=== PATIENT | male | born 1995 | race Caucasian/White ===

== ENCOUNTER 2020-11-18 10:59 | Emergency (ER) | payer MEDICAID ==
[~2020-11-18] VITALS: Ht 167.6 cm; Wt 79.4 kg
[2020-11-18 11:13] VITALS: BP_SYST 128
--- NOTE | 2020-11-18 11:25 | NUR ---
Placed in room 4 . Placed on quality assurance monitor final, blood pressure machine and pulse oximeter. To gown for exam. Side rails up.
[2020-11-18] MEDS ORDERED: ONDANSETRON HCL 4 MG/2 ML VIAL IVP ONE ×2 (11:30→12:45)
[2020-11-18] MEDS ORDERED: KETOROLAC TROMETHAMINE 30 MG VIAL IVP ONE (11:30)
[2020-11-18] MEDS ORDERED: NACL 0.9% 1,000 ML IV ONE (11:30)
--- NOTE | 2020-11-18 11:30 | NUR ---
Pt walked in to ER with c/o abdominal pain 10/10, nausea no vomiting x2 days. Reports h/o kidney stones. V/S stable, no distress noted.
--- NOTE | 2020-11-18 11:35 | NUR ---
ER Dr. Erickson at bedside examining patient.
--- NOTE | 2020-11-18 11:40 | NUR ---
# 20 gauge angiocath placed to LFA. Use of asceptic technique. Opsite placed over site. Blood return noted. Blood for lab drawn from site. Flushed with 10 cc of normal saline. No evidence of infiltration noted. Patient tolerated well.
--- NOTE | 2020-11-18 11:45 | NUR ---
Patient transported to radiology via wheelchair, accompanied by staff.
--- NOTE | 2020-11-18 11:59 | NUR ---
Returned from radiology, back to [facility].
[2020-11-18 12:02] LABS: BASOPHILS # (AUTO) 0.1 K/uL (0.0-0.2); BASOPHILS % (AUTO) 1.8 % (0.0-2.0); EOSINOPHILS # (AUTO) 0.1 K/uL (0.0-0.4); EOSINOPHILS % (AUTO) 1.6 % (0.0-4.0); HEMATOCRIT 45.2 % (36-54); HEMOGLOBIN 15.4 g/dL (14.0-18.0); LYMPHOCYTES # (AUTO) 3.5 K/uL (1.0-5.5); LYMPHOCYTES % (AUTO) 47.8 % (20.5-51.5); MEAN CORPUSCULAR HEMOGLOBIN 31 pg (27-31); MEAN CORPUSCULAR HGB CONC 34 % (32-36); MEAN CORPUSCULAR VOLUME 90 fL (79.0-98.0); MONOCYTES # (AUTO) 0.3 K/uL (0.0-1.0); MONOCYTES % (AUTO) 4.2 % (1.7-9.3); NEUTROPHILS # (AUTO) 3.2 K/uL (1.8-7.7); NEUTROPHILS % (AUTO) 44.6 % (40.0-70.0); PLATELET COUNT (AUTO) 335 K/uL (130-430); RED BLOOD CELL COUNT(AUTO) 5.02 MIL/uL (4.2-6.2); RED CELL DISTRIBUTION WIDTH 12.4 % (9.0-15.0); WHITE BLOOD COUNT (AUTO) 7.2 K/uL (4.8-10.8)
--- NOTE | 2020-11-18 12:05 | NUR ---
PT GIVEN URINAL AND ENCOURAGED TO VOID
[2020-11-18 12:21] LABS: CALCIUM 9.3 mg/dL (8.4-11.0); CREATININE 0.93 mg/dL (0.55-1.30)
[2020-11-18 12:26] LABS: ALBUMIN 4.2 g/dL (3.4-4.8); TOTAL BILIRUBIN 0.5 mg/dL (0.0-1.0)
[2020-11-18] MEDS ORDERED: traMADol HCL HCL 50 MG TABLET (ULTRAM) PO ONE (12:30)
[2020-11-18 12:32] LABS: BILIRUBIN,URINE 1+ (NEGATIVE); BLOOD, URINE 3+ (NEGATIVE); CLARITY/URINE CLEAR (CLEAR); COLOR,URINE YELLOW (YELLOW); GLUCOSE,URINE NEGATIVE (NEGATIVE); KETONES,URINE TRACE (NEGATIVE); LEUKOCYTE ESTERASE ,URINE NEGATIVE (NEGATIVE); NITRITE, URINE NEGATIVE (NEGATIVE); PROTEIN URINE 2+ (NEGATIVE)
--- NOTE | 2020-11-18 12:38 | NUR ---
PT THREW UP PAIN MEDICATION AND WATER AFTER ADMINISTRATION
[2020-11-18] MEDS ORDERED: fentaNYL CITRATE/PF 100 MCG/2 ML AMP IVP ONE (12:45)
[2020-11-18] MEDS ORDERED: ONDA4TAB5 PO ×2 (12:46→13:00)
[2020-11-18] MEDS ORDERED: TRAM50TA2 PO ×2 (12:46→13:00)
[2020-11-18 13:02] LABS: BACTERIA,URINE None Seen /HPF (None Seen); CALCIUM PHOSPHATE CRYSTALS,UR None Seen /HPF (None Seen); RBC,URINE >100 /HPF (0-3); TRICHOMONAS,URINE None Seen /HPF (None Seen); WBC,URINE NONE SEEN /HPF (0-3); YEAST,URINE None Seen /HPF (None Seen)
[2020-11-18 13:17] VITALS: BP_SYST 134
--- NOTE | 2020-11-18 13:19 | NUR ---
Patient given written and verbal discharge instructions and verbalizes understanding. ER MD discussed with patient the results and treatment provided. Patient in stable condition. ID arm band removed. IV catheter removed intact and dressing applied, no active bleeding. Rx of TRAMADOL AND ZOFRAN given. Patient educated on pain management and to follow up with PMD. Pain Scale 3/10. Opportunity for questions provided and answered. Medication side effect fact sheet provided.
== END 2020-11-18 13:19 | disposition home or self-care (01) ==
LOC: SED 10:59
DX: N20.0 Calculus of kidney (principal); Z88.6 Allergy status to analgesic agent
CPT/HCPCS: 36415; 74176; 76376; 80053; 81000; 85025; 96361; 96374; 96375; 96376; 99284; J1885; J2405; J3010; J7030